=== PATIENT | male | born 1955 | race Caucasian/White ===

== ENCOUNTER 2023-08-26 10:19 | Outpatient (CLI) | payer MEDICARE, SELFPAY ==
--- NOTE | ~2023-08-26 | CT_ITS ---
EXAMINATION: CT sinus wo con DATE: 08/26/2023 10:48 INDICATION: Other allergic rhinitis TECHNIQUE: Computed tomography (CT) of the paranasal sinuses was performed without intravenous contra st. The dose-length product (DLP) was 259.22 mGy-cm. Iterative reconstruction was used. COMPARISON: None FINDINGS: There is normal development and pneumatization of the paranasal sinuses. The frontal sinuse s are clear. There are fluid levels in the maxillary sinus. There is minimal mucosal thickening of th e ethmoidal air cells and sphenoid sinuses. The bilateral ostiomeatal complexes are occluded. Visuali zed soft tissues are unremarkable. The mastoid air cells are clear. A metallic foreign body projects in the soft tissues anterior to the right maxilla. IMPRESSION: 1. Sinus disease as detailed above. Reviewed, dictated and finalized at location [facility]. [facility]
== END 2023-08-26 10:20 | disposition home or self-care (01) ==
LOC: CHSIMG 10:21
PROVIDERS: PCP Family Medicine; Visit Provider Otolaryngology
DX: B49 Unspecified mycosis (principal); J30.89 Other allergic rhinitis
CPT/HCPCS: 70486